=== PATIENT | female | born 1945 | race Two or more races ===

== ENCOUNTER → 2017-03-28 | Outpatient (CLI) | payer MEDICARE, OTHER ==
[~2017-03-28] MED LIST: HYZAAR 100-251 EACH ORAL; NORVASC5 MG ORAL; PROAIR HFA8.5 GM INH; SYMBICORT 1601 PUFFS INH; VIBRAMYCIN100 MG ORAL
[2017-03-28 17:05] LABS: BASOPHILS % (AUTO) 0.9 % (0.0-2.0); EOSINOPHILS % (AUTO) 0.7 % (0.0-3.0); LYMPHOCYTES % (AUTO) 13.2 % (20.0-45.0); MEAN CORPUSCULAR HEMOGLOBIN 28.7 PG (27.0-31.0); MEAN CORPUSCULAR HGB CONC 34.9 G/DL (32.0-36.0); MEAN CORPUSCULAR VOLUME 82 FL (80-99); MEAN PLATELET VOLUME 8.9 FL (6.5-10.1); MONOCYTES % (AUTO) 8.1 % (1.0-10.0); NEUTROPHILS % (AUTO) 77.1 % (45.0-75.0); PLATELET COUNT 287 K/UL (150-450); RED BLOOD COUNT 4.81 M/UL (4.20-5.40); RED CELL DISTRIBUTION WIDTH 14.2 % (11.6-14.8)
[2017-03-28 17:23] LABS: ANION GAP 17 (5-15); CALCIUM 9.9 mg/dL (8.6-10.2); CARBON DIOXIDE 26 mEQ/L (20-30); CHLORIDE 93 mEQ/L (98-107); CREATININE 0.9 mg/dL (0.5-0.9); HEMOLYSIS 0; POTASSIUM 3.8 mEQ/L (3.4-4.9); SODIUM 136 mEQ/L (135-145)
--- NOTE | 2017-03-30 08:40 | Diagnostic Imaging Report ---
Indication: COUGH Technique: One view of the chest Comparison: none Findings: Large collection of cystic spaces is seen extending from the right hilar region to the lung apex. On the lateral view, there is suggestion of air-fluid levels within some of these. Similar but less concentrated collections are also seen in the left upper lobe. There is also a left perihilar possible air-fluid level and small left infrahilar air fluid level. No focal infiltrates. There is very slight bilateral costophrenic angle blunting posteriorly, seen only on the lateral view. The heart size is normal. Impression: Evidence of bilateral of extensive cystic spaces, may reflect areas of cystic bronchiectasis. Air-fluid levels are seen within several of the cysts, and infection of these is not excludable. Possible trace bilateral pleural effusions Findings discussed by phone with Dr. Monterroso at the time of interpretation
== END | disposition home or self-care (01) ==
LOC: RAD 16:00
DX: J18.9 Pneumonia, unspecified organism (principal); J90 Pleural effusion, not elsewhere classified
CPT/HCPCS: 36415; 71020; 80048; 85025; 87040